=== PATIENT | female | born 2000 | race Caucasian/White ===

== ENCOUNTER 2021-07-17 10:50 | Outpatient (CLI) | payer BC, OTHER | END 2021-07-17 10:51 | disposition home or self-care (01) | LOC: CSHMRI 10:50 | PROVIDERS: ATTEND Nurse Practitioner Acute Care | DX: G43.109 Migraine with aura, not intractable, without status migrainosus (principal) | CPT/HCPCS: 70553 ==

== ENCOUNTER 2021-10-01 03:34 | Emergency (ER) | payer BC, OTHER | END 2021-10-01 06:01 | disposition home or self-care (01) | LOC: CSHERS 03:34 | DX: M54.12 Radiculopathy, cervical region (principal); F17.290 Nicotine dependence, other tobacco product, uncomplicated | CPT/HCPCS: 93005 ==